=== PATIENT | male | born 1960 | race Caucasian/White ===

== ENCOUNTER 2021-10-26 18:15 | Inpatient (IN) | payer MEDICARE, MEDICAID ==
[~2021-10-26] VITALS: Ht 172.7 cm; Wt 59.5 kg
[2021-10-26 19:42] LABS: BASOPHILS % (AUTO) 0.3 % (0.0-2.0); EOSINOPHILS % (AUTO) 0.1 % (1.0-6.0); HEMOGLOBIN 11.2 g/dL (13.5-17.5); LYMPHOCYTES # (AUTO) 0.5 K/uL (1.0-4.8); LYMPHOCYTES % (AUTO) 4.4 % (22.0-44.0); MEAN CORPUSCULAR HEMOGLOBIN 28.6 pg (26.0-34.0); MEAN CORPUSCULAR VOLUME 84 fL (80-100); MONOCYTES # (AUTO) 0.8 K/uL (0.1-1.0); MONOCYTES % (AUTO) 7.4 % (2.0-9.0); PLATELET COUNT (AUTO) 271 K/uL (150-450); RED BLOOD CELL COUNT(AUTO) 3.93 MIL/uL (4.50-5.90); RED CELL DISTRIBUTION WIDTH 14.5 % (11.5-14.5)
[2021-10-26 19:43] LABS: NEUTROPHILS % (AUTO) 87.8 % (40.0-70.0)
[2021-10-26 19:52] LABS: ANION GAP 10 mmol/L (8-16); CALCIUM, TOTAL 8.5 mg/dL (8.8-10.5); CARBON DIOXIDE 23 mmol/L (22-29); CHLORIDE 99 mmol/L (98-107); GLOMERULAR FILTR. RATE CALC > 60 mL/min (>60); GLUCOSE,RANDOM 115 mg/dL (70-110); POTASSIUM 3.9 mmol/L (3.5-5.1); SODIUM SERUM 132 mmol/L (136-145); UREA NITROGEN, BLOOD 21 mg/dL (7-18)
[2021-10-26 19:58] LABS: ALANINE AMINOTRANSFERASE 22 U/L (12-78); ALBUMIN 3.1 g/dL (3.4-5.0); ALKALINE PHOSPHATASE 73 U/L (46-116); ASPARTATE AMINOTRANSFERASE 24 U/L (15-37); BILIRUBIN,TOTAL 0.7 mg/dL (0.1-1.0); TOTAL PROTEIN, SERUM 6.8 g/dL (6.4-8.2)
[2021-10-26] MEDS ORDERED: SODIUM CHLORIDE 0.9% 2,000 ML IV ONE (20:00)
[2021-10-26] MEDS ORDERED: ACETAMINOPHEN 500 MG TABLET PO ONE (20:00)
[2021-10-26] MEDS ORDERED: PIPERACILLIN/TAZO 3.375 GM/D5W 50 ML IV SCH (20:00)
[2021-10-26 20:03] LABS: LACTIC ACID 1.3 mmol/L (0.4-2.0)
[2021-10-26] MEDS ORDERED: SODIUM CHLORIDE 0.9% 0 ML ONE (20:29)
[2021-10-26] MEDS ORDERED: IOHEXOL 350 MG/ML 100 ML VIAL ONE (20:29)
[2021-10-26] MEDS ORDERED: ONDANSETRON HCL 4 MG/2 ML VIAL IVP PRN ×2 (20:30→20:45)
[2021-10-26] MEDS ORDERED: 0.9% SODIUM CHLORIDE 10 ML SYRINGE IVP PRN (20:30)
[2021-10-26] MEDS ORDERED: VANCOMYCIN HCL 1 GM/D5% WATER 200 ML IV ONE (20:45)
[2021-10-26] MEDS ORDERED: MORPHINE SULFATE 2 MG/ML SYRINGE IVP PRN (20:45)
[2021-10-26] MEDS ORDERED: SODIUM CHLORIDE 0.9% 1,000 ML IV ONE (20:45)
[2021-10-26 20:51] LABS: COVID AG,FIA SOURCE NASAL SWAB
[2021-10-26] MEDS ORDERED: PERTUSS(ACELL),DIPH,TET VAC/PF 0.5 ML SYRINGE IM. ONE (21:00)
[2021-10-26] MEDS: DOCUSATE SODIUM 100 MG CAPSULE PO SCH (21:49)
[2021-10-27] VITALS: BP 114/130
[2021-10-27] MEDS: PIPERACILLIN/TAZO 3.375 GM/D5W 50 ML IV SCH ×4 (04:12→22:32)
[2021-10-27 07:47] LABS: ANION GAP 12 mmol/L (8-16); CARBON DIOXIDE 23 mmol/L (22-29); CHLORIDE 101 mmol/L (98-107); CREATININE 0.89 mg/dL (0.60-1.30); GLOMERULAR FILTR. RATE CALC > 60 mL/min (>60); GLUCOSE,RANDOM 98 mg/dL (70-110); POTASSIUM 3.8 mmol/L (3.5-5.1); SODIUM SERUM 136 mmol/L (136-145); UREA NITROGEN, BLOOD 13 mg/dL (7-18)
[2021-10-27] MEDS: VANCOMYCIN HCL 1 GM in DEXTROSE 5%-WATER 250 ML IV SCH ×2 (07:58→20:48)
[2021-10-27 08:13] VITALS: BP 102/61
[2021-10-27] MEDS: DOCUSATE SODIUM 100 MG CAPSULE PO SCH ×2 (09:28→21:06)
[2021-10-27] MEDS: FAMOTIDINE 20 MG TABLET PO SCH (09:29)
[2021-10-27] MEDS: ACETAMINOPHEN 325 MG TABLET PO PRN ×3 (09:29→21:13)
[2021-10-27 12:09] VITALS: BP 94/60
[2021-10-27 16:08] VITALS: BP 102/66
[2021-10-27 19:50] VITALS: BP 90/50
[2021-10-28] MEDS: PIPERACILLIN/TAZO 3.375 GM/D5W 50 ML IV SCH ×4 (04:11→22:00)
[2021-10-28 07:59] LABS: ANION GAP 9 mmol/L (8-16); CARBON DIOXIDE 25 mmol/L (22-29); CHLORIDE 105 mmol/L (98-107); GLOMERULAR FILTR. RATE CALC > 60 mL/min (>60); GLUCOSE,RANDOM 151 mg/dL (70-110); POTASSIUM 3.6 mmol/L (3.5-5.1); SODIUM SERUM 139 mmol/L (136-145); UREA NITROGEN, BLOOD 18 mg/dL (7-18); VANCOMYCIN,RANDOM 12.1 mcg/mL (25.0-50.0)
[2021-10-28] MEDS: FAMOTIDINE 20 MG TABLET PO SCH (09:36)
[2021-10-28] MEDS: DOCUSATE SODIUM 100 MG CAPSULE PO SCH ×2 (09:36→19:52)
[2021-10-28] MEDS ORDERED: SODIUM CHLORIDE 0.9% 500 ML IV ONE (09:40)
[2021-10-28] MEDS: VANCOMYCIN HCL 1.25 GM in DEXTROSE 5%-WATER 250 ML IV SCH ×2 (10:41→19:52)
[2021-10-28] MEDS ORDERED: SODIUM CHLORIDE 0.9% 1,000 ML IV ONE (12:00)
[2021-10-28] MEDS ORDERED: SODIUM CHLORIDE 0.9% 0 ML ONE (13:25)
[2021-10-28] MEDS: ACETAMINOPHEN 325 MG TABLET PO PRN (16:55)
[2021-10-28 17:34] VITALS: BP 91/68
[2021-10-28 19:50] VITALS: BP 111/68
[2021-10-28] MEDS: QUEtiapine FUMARATE 200 MG TABLET PO SCH (19:52)
[2021-10-29] MEDS: PIPERACILLIN/TAZO 3.375 GM/D5W 50 ML IV SCH ×4 (04:00→22:27)
[2021-10-29 04:50] VITALS: BP 116/75
[2021-10-29] MEDS: VANCOMYCIN HCL 1.25 GM in DEXTROSE 5%-WATER 250 ML IV SCH ×2 (08:00→21:21)
[2021-10-29] MEDS: DOCUSATE SODIUM 100 MG CAPSULE PO SCH ×2 (09:00→21:21)
[2021-10-29] MEDS: FAMOTIDINE 20 MG TABLET PO SCH (09:00)
[2021-10-29] MEDS: HYDROCODONE/ACETAMINOPHEN 5-325 MG TABLET PO PRN ×2 (12:52→17:14)
[2021-10-29] MEDS: SULFAMETHOX/TRIMETH DS 800-160 MG/TABLET PO SCH ×2 (12:53→21:22)
[2021-10-29] MEDS: QUEtiapine FUMARATE 200 MG TABLET PO SCH (21:21)
[2021-10-30] MEDS: PIPERACILLIN/TAZO 3.375 GM/D5W 50 ML IV SCH ×4 (05:05→22:56)
[2021-10-30 07:31] LABS: ANION GAP 6 mmol/L (8-16); CALCIUM, TOTAL 8.3 mg/dL (8.8-10.5); CARBON DIOXIDE 26 mmol/L (22-29); CHLORIDE 110 mmol/L (98-107); CREATININE 1.07 mg/dL (0.60-1.30); GLOMERULAR FILTR. RATE CALC > 60 mL/min (>60); GLUCOSE,RANDOM 102 mg/dL (70-110); SODIUM SERUM 142 mmol/L (136-145); UREA NITROGEN, BLOOD 17 mg/dL (7-18)
[2021-10-30] MEDS: VANCOMYCIN HCL 1.25 GM in DEXTROSE 5%-WATER 250 ML IV SCH ×2 (07:53→20:31)
[2021-10-30] MEDS: SULFAMETHOX/TRIMETH DS 800-160 MG/TABLET PO SCH (07:53)
[2021-10-30] MEDS: DOCUSATE SODIUM 100 MG CAPSULE PO SCH ×2 (07:54→20:31)
[2021-10-30] MEDS: HYDROCODONE/ACETAMINOPHEN 5-325 MG TABLET PO PRN (07:54)
[2021-10-30] MEDS: FAMOTIDINE 20 MG TABLET PO SCH (07:54)
[2021-10-30 09:28] VITALS: BP 151/77
[2021-10-30] MEDS: QUEtiapine FUMARATE 200 MG TABLET PO SCH (20:31)
[2021-10-31] MEDS: PIPERACILLIN/TAZO 3.375 GM/D5W 50 ML IV SCH ×4 (04:06→22:32)
[2021-10-31 04:58] VITALS: BP 130/86
[2021-10-31 07:09] LABS: ANION GAP 9 mmol/L (8-16); CALCIUM, TOTAL 8.5 mg/dL (8.8-10.5); CARBON DIOXIDE 26 mmol/L (22-29); CHLORIDE 104 mmol/L (98-107); CREATININE 1.17 mg/dL (0.60-1.30); GLOMERULAR FILTR. RATE CALC > 60 mL/min (>60); GLUCOSE,RANDOM 108 mg/dL (70-110); POTASSIUM 4.3 mmol/L (3.5-5.1); SODIUM SERUM 139 mmol/L (136-145); UREA NITROGEN, BLOOD 16 mg/dL (7-18); VANCOMYCIN,RANDOM 21.1 mcg/mL (25.0-50.0)
[2021-10-31] MEDS: VANCOMYCIN HCL 1.25 GM in DEXTROSE 5%-WATER 250 ML IV SCH (07:43)
[2021-10-31] MEDS: FAMOTIDINE 20 MG TABLET PO SCH (08:31)
[2021-10-31] MEDS: DOCUSATE SODIUM 100 MG CAPSULE PO SCH ×2 (08:31→20:31)
[2021-10-31] MEDS: ACETAMINOPHEN 325 MG TABLET PO PRN ×2 (08:40→12:53)
[2021-10-31] MEDS ORDERED: SODIUM CHLORIDE 0.9% 1,000 ML ONE (14:39)
[2021-10-31] MEDS ORDERED: LORazepam 1 MG TABLET PO PRN (16:15)
[2021-10-31] MEDS ORDERED: LORazepam 2 MG/ML VIAL IVP PRN (16:15)
[2021-10-31 20:30] VITALS: BP 133/89
[2021-10-31] MEDS: VANCOMYCIN HCL 1 GM/D5% WATER 200 ML IV SCH (20:30)
[2021-10-31] MEDS: QUEtiapine FUMARATE 200 MG TABLET PO SCH (20:30)
[2021-11-01] MEDS: PIPERACILLIN/TAZO 3.375 GM/D5W 50 ML IV SCH ×2 (05:05→11:01)
[2021-11-01 07:26] LABS: CALCIUM, TOTAL 9.2 mg/dL (8.8-10.5); CREATININE 1.26 mg/dL (0.60-1.30); POTASSIUM 4.6 mmol/L (3.5-5.1)
[2021-11-01] MEDS: FAMOTIDINE 20 MG TABLET PO SCH (09:08)
[2021-11-01] MEDS: DOCUSATE SODIUM 100 MG CAPSULE PO SCH ×2 (09:08→21:00)
[2021-11-01] MEDS: VANCOMYCIN HCL 1 GM/D5% WATER 200 ML IV SCH (09:09)
[2021-11-01 11:27] LABS: BASOPHILS % (AUTO) 0.5 % (0.0-2.0); HEMATOCRIT 34.1 % (41-53); HEMOGLOBIN 11.3 g/dL (13.5-17.5); LYMPHOCYTES # (AUTO) 1.1 K/uL (1.0-4.8); LYMPHOCYTES % (AUTO) 13.5 % (22.0-44.0); MEAN CORPUSCULAR HEMOGLOBIN 28.5 pg (26.0-34.0); MEAN CORPUSCULAR VOLUME 86 fL (80-100); MONOCYTES # (AUTO) 0.8 K/uL (0.1-1.0); NEUTROPHILS # (AUTO) 6.1 K/uL (1.8-7.7); PLATELET COUNT (AUTO) 403 K/uL (150-450); RED BLOOD CELL COUNT(AUTO) 3.95 MIL/uL (4.50-5.90)
[2021-11-01] MEDS: HYDROCODONE/ACETAMINOPHEN 5-325 MG TABLET PO PRN ×2 (11:41→21:14)
[2021-11-01 12:51] VITALS: BP 135/71
[2021-11-01] MEDS: QUEtiapine FUMARATE 200 MG TABLET PO SCH (21:11)
[2021-11-01] MEDS: SULFAMETHOX/TRIMETH DS 800-160 MG/TABLET PO SCH (21:12)
[2021-11-02 07:56] VITALS: BP 107/67
[2021-11-02] MEDS: SULFAMETHOX/TRIMETH DS 800-160 MG/TABLET PO SCH ×2 (08:56→19:58)
[2021-11-02] MEDS: FAMOTIDINE 20 MG TABLET PO SCH (08:56)
[2021-11-02] MEDS: DOCUSATE SODIUM 100 MG CAPSULE PO SCH ×2 (08:56→19:58)
[2021-11-02] MEDS: HYDROCODONE/ACETAMINOPHEN 5-325 MG TABLET PO PRN ×2 (09:47→19:58)
[2021-11-02] MEDS: QUEtiapine FUMARATE 200 MG TABLET PO SCH (19:58)
[2021-11-02 20:07] VITALS: BP 110/73
[2021-11-02 20:31] VITALS: BP 102/76
[2021-11-03] MEDS: HYDROCODONE/ACETAMINOPHEN 5-325 MG TABLET PO PRN ×2 (06:26→13:42)
[2021-11-03 06:34] VITALS: BP 121/74
[2021-11-03 08:04] LABS: CALCIUM, TOTAL 8.8 mg/dL (8.8-10.5); CREATININE 1.46 mg/dL (0.60-1.30); POTASSIUM 4.5 mmol/L (3.5-5.1); VANCOMYCIN,RANDOM 5.5 mcg/mL (25.0-50.0)
[2021-11-03 08:59] VITALS: BP 130/87
[2021-11-03] MEDS: SULFAMETHOX/TRIMETH DS 800-160 MG/TABLET PO SCH (09:16)
[2021-11-03] MEDS: DOCUSATE SODIUM 100 MG CAPSULE PO SCH (09:16)
[2021-11-03] MEDS: FAMOTIDINE 20 MG TABLET PO SCH (09:16)
[2021-11-03 16:20] VITALS: BP 104/63
[2021-11-03] MEDS ORDERED: QUET200T PO (17:29)
[2021-11-03] MEDS ORDERED: SULF-261 PO (17:29)
[2021-11-03] MEDS ORDERED: ACET-2247 PO (17:29)
[2021-11-03] MEDS ORDERED: LORA-1000 PO (17:30)
== END 2021-11-03 19:46 | DRG 872 ==
LOC: EMS 18:18 → 6N 21:00
PROVIDERS: ADMIT Internal Medicine; ATTEND Internal Medicine
DX: A41.9 Sepsis, unspecified organism (principal); L03.113 Cellulitis of right upper limb; F20.0 Paranoid schizophrenia; L03.115 Cellulitis of right lower limb; L02.413 Cutaneous abscess of right upper limb; F17.210 Nicotine dependence, cigarettes, uncomplicated; F99 Mental disorder, not otherwise specified; F15.10 Other stimulant abuse, uncomplicated; Z20.822 Contact with and (suspected) exposure to COVID-19; F11.10 Opioid abuse, uncomplicated; Z59.00 Homelessness unspecified; Z91.19 Patient's noncompliance with other medical treatment and regimen
CPT/HCPCS: 73200; 80048; 80053; 80202; 83605; 84484; 85025; 87040; 87081; 90715; 93005; 99291; G0378; G0480; J2270; J2405; J2543; J3370; J7030; J7040; J7050; J7060; Q9967

== ENCOUNTER 2021-11-04 14:06 | Inpatient (IN) | payer MEDICARE, MEDICAID ==
[~2021-11-04] VITALS: Ht 172.7 cm; Wt 60.0 kg
[~2021-11-04 14:06] MED LIST: ACET-2247 PO; LORA-1000 PO; QUET200T PO; SULF-261 PO
[2021-11-04 14:45] LABS: HEMATOCRIT 31.5 % (41-53); HEMOGLOBIN 10.7 g/dL (13.5-17.5); MEAN CORPUSCULAR HEMOGLOBIN 28.9 pg (26.0-34.0); MEAN CORPUSCULAR VOLUME 85 fL (80-100); PLATELET COUNT (AUTO) 448 K/uL (150-450); RED BLOOD CELL COUNT(AUTO) 3.71 MIL/uL (4.50-5.90); RED CELL DISTRIBUTION WIDTH 15.5 % (11.5-14.5)
[2021-11-04 15:04] LABS: ANION GAP 10 mmol/L (8-16); CALCIUM, TOTAL 8.4 mg/dL (8.8-10.5); CARBON DIOXIDE 27 mmol/L (22-29); CHLORIDE 102 mmol/L (98-107); CREATININE 1.33 mg/dL (0.60-1.30); GLOMERULAR FILTR. RATE CALC 55 mL/min (>60); GLUCOSE,RANDOM 84 mg/dL (70-110); POTASSIUM 4.5 mmol/L (3.5-5.1); SODIUM SERUM 139 mmol/L (136-145); UREA NITROGEN, BLOOD 21 mg/dL (7-18)
[2021-11-04 15:05] LABS: AMPHET/METH SCREEN,URINE NEGATIVE (NEGATIVE); BARBITURATE SCREEN, URINE NEGATIVE (NEGATIVE); BENZODIAZEPINES SCREEN,URINE NEGATIVE (NEGATIVE); CANNABINOID SCREEN,URINE NEGATIVE (NEGATIVE); COCAINE SCREEN,URINE NEGATIVE (NEGATIVE); METHADONE SCREEN, URINE NEGATIVE (NEGATIVE); OPIATE SCREEN,URINE NEGATIVE (NEGATIVE)
[2021-11-04 15:07] LABS: PHENCYCLIDINE SCREEN,URINE NEGATIVE (NEGATIVE)
[2021-11-04 15:07] LABS: ALANINE AMINOTRANSFERASE 21 U/L (12-78); ALBUMIN 2.5 g/dL (3.4-5.0); ALKALINE PHOSPHATASE 80 U/L (46-116); ASPARTATE AMINOTRANSFERASE 20 U/L (15-37); BILIRUBIN,TOTAL 0.2 mg/dL (0.1-1.0); TOTAL PROTEIN, SERUM 6.8 g/dL (6.4-8.2)
[2021-11-04 15:09] LABS: BAND NEUTROPHILS % (MANUAL) 5 % (0-5); EOSINOPHILS % (MANUAL) 1 % (1-6); LYMPHOCYTES % (MANUAL) 16 % (22-44); MONOCYTES % (MANUAL) 2 % (2-9); SEGMENTED NEUTROPHILS % 76 % (40-70)
[2021-11-04] MEDS ORDERED: LORazepam 2 MG TABLET PO ONE (15:30)
[2021-11-04] MEDS ORDERED: HALOPERIDOL 5 MG TABLET PO ONE (15:30)
[2021-11-04 17:24] LABS: COVID AG,FIA SOURCE NASOPHARYNGEAL
[2021-11-04] MEDS: QUEtiapine FUMARATE 200 MG TABLET PO SCH (20:59)
[2021-11-04] MEDS ORDERED: PNEUMOCOCCAL VACCINE POLYVALENT 0.5 ML VIAL [PPSV23] IM. ONE (21:15)
[2021-11-04] MEDS ORDERED: INFLUENZA VIRUS VACCINE QVS 2021-22 (6MO+)/PF 60 MCG/0.5 ML SYRINGE IM. ONE (21:15)
[2021-11-04 21:27] VITALS: BP 131/91
[2021-11-05 01:28] VITALS: BP 128/83
[2021-11-05 08:26] VITALS: BP 126/80
[2021-11-05] MEDS: LORazepam 2 MG TABLET PO PRN ×2 (08:50→16:23)
[2021-11-05] MEDS: SULFAMETHOX/TRIMETH DS 800-160 MG/TABLET PO SCH ×2 (08:50→16:23)
[2021-11-05] MEDS ORDERED: ACETAMINOPHEN 325 MG TABLET PO PRN (09:30)
[2021-11-05] MEDS: HALOPERIDOL 5 MG TABLET PO PRN ×2 (10:51→16:23)
[2021-11-05] MEDS ORDERED: CloNIDine HCL 0.1 MG TABLET PO PRN (12:00)
[2021-11-05] MEDS ORDERED: LOPERAMIDE HCL 2 MG CAPSULE PO PRN (12:00)
[2021-11-05] MEDS ORDERED: PETROLATUM,WHITE 28 GM JELLY TP PRN (12:00)
[2021-11-05] MEDS ORDERED: GuaiFENesin/D-METHORPHAN [SUGAR-FREE] 200-20MG/10 ML SYRUP UDCUP PO PRN (12:00)
[2021-11-05] MEDS ORDERED: IBUPROFEN 400 MG TABLET PO PRN (12:00)
[2021-11-05] MEDS ORDERED: NICOTINE 14 MG/24 HOUR PATCH TD PRN (12:00)
[2021-11-05] MEDS ORDERED: ALBUTEROL SULFATE HFA 90 MCG/PUFF 8 GM INHALER IH PRN (12:00)
[2021-11-05] MEDS ORDERED: MAGNESIUM HYDROXIDE SUSPENSION 30 ML UDCUP PO PRN (12:00)
[2021-11-05] MEDS ORDERED: ONDANSETRON HCL 4 MG TABLET PO PRN (12:00)
[2021-11-05] MEDS ORDERED: DOCUSATE SODIUM 100 MG CAPSULE PO PRN (12:00)
[2021-11-05] MEDS ORDERED: MAG HYDROX/AL HYDROX/SIMETH ES 30 ML SUSPENSION UDCUP PO PRN (12:00)
[2021-11-05] MEDS: ACETAMINOPHEN 325 MG TABLET PO PRN (13:36)
[2021-11-05 16:03] VITALS: BP 113/81
[2021-11-05] MEDS: QUEtiapine FUMARATE 200 MG TABLET PO SCH (20:35)
[2021-11-05] MEDS: ZOLPIDEM TARTRATE 10 MG TABLET PO PRN (20:36)
[2021-11-06 03:16] VITALS: BP 110/78
[2021-11-06 08:02] VITALS: BP 98/62
[2021-11-06] MEDS: SULFAMETHOX/TRIMETH DS 800-160 MG/TABLET PO SCH ×2 (08:09→16:38)
[2021-11-06] MEDS: ACETAMINOPHEN 325 MG TABLET PO PRN (08:10)
[2021-11-06 09:10] VITALS: BP 115/70
[2021-11-06] MEDS: LORazepam 2 MG TABLET PO PRN ×2 (13:22→17:23)
[2021-11-06 16:26] VITALS: BP 106/69
[2021-11-06] MEDS: HALOPERIDOL 5 MG TABLET PO PRN (17:23)
[2021-11-06] MEDS: QUEtiapine FUMARATE 200 MG TABLET PO SCH (20:25)
[2021-11-07 04:26] VITALS: BP 113/81
[2021-11-07] MEDS: HALOPERIDOL 5 MG TABLET PO PRN ×2 (08:15→16:33)
[2021-11-07] MEDS: SULFAMETHOX/TRIMETH DS 800-160 MG/TABLET PO SCH ×2 (08:15→16:33)
[2021-11-07] MEDS: LORazepam 2 MG TABLET PO PRN ×3 (08:16→18:29)
[2021-11-07 10:12] VITALS: BP 114/78
[2021-11-07 16:07] VITALS: BP 102/67
[2021-11-07] MEDS: QUEtiapine FUMARATE 200 MG TABLET PO SCH (20:04)
[2021-11-07] MEDS: ZOLPIDEM TARTRATE 10 MG TABLET PO PRN (20:04)
[2021-11-08 04:20] VITALS: BP 132/84
[2021-11-08 08:00] VITALS: BP 130/80
[2021-11-08] MEDS: HALOPERIDOL 5 MG TABLET PO PRN (08:14)
[2021-11-08] MEDS: SULFAMETHOX/TRIMETH DS 800-160 MG/TABLET PO SCH ×2 (08:14→16:52)
[2021-11-08] MEDS: LORazepam 2 MG TABLET PO PRN ×2 (08:14→14:44)
[2021-11-08 16:02] VITALS: BP 113/76
[2021-11-08] MEDS: ZOLPIDEM TARTRATE 10 MG TABLET PO PRN (20:06)
[2021-11-08] MEDS: QUEtiapine FUMARATE 200 MG TABLET PO SCH (20:06)
[2021-11-09 01:14] VITALS: BP 125/72
[2021-11-09] MEDS: LORazepam 2 MG TABLET PO PRN ×3 (06:28→18:34)
[2021-11-09] MEDS: SULFAMETHOX/TRIMETH DS 800-160 MG/TABLET PO SCH ×2 (08:31→16:51)
[2021-11-09 09:18] VITALS: BP 110/70
[2021-11-09 16:16] VITALS: BP 122/78
[2021-11-09] MEDS: HALOPERIDOL 5 MG TABLET PO PRN (16:51)
[2021-11-09] MEDS: QUEtiapine FUMARATE 200 MG TABLET PO SCH (20:16)
[2021-11-09] MEDS: ZOLPIDEM TARTRATE 10 MG TABLET PO PRN (20:16)
[2021-11-10 00:15] VITALS: BP 120/78
[2021-11-10] MEDS: LORazepam 2 MG TABLET PO PRN ×2 (06:42→16:07)
[2021-11-10] MEDS: SULFAMETHOX/TRIMETH DS 800-160 MG/TABLET PO SCH ×2 (08:22→16:07)
[2021-11-10] MEDS ORDERED: QUEtiapine FUMARATE 200 MG TABLET PO ONE (09:15)
[2021-11-10 09:58] VITALS: BP 124/80
[2021-11-10 16:02] VITALS: BP 108/68
[2021-11-10] MEDS: ZOLPIDEM TARTRATE 10 MG TABLET PO PRN (20:08)
[2021-11-10] MEDS: QUEtiapine FUMARATE 200 MG TABLET PO SCH (20:08)
[2021-11-11 04:06] VITALS: BP 118/70
[2021-11-11] MEDS: LORazepam 2 MG TABLET PO PRN ×3 (05:36→16:18)
[2021-11-11] MEDS: SULFAMETHOX/TRIMETH DS 800-160 MG/TABLET PO SCH ×2 (09:39→16:18)
[2021-11-11] MEDS: QUEtiapine FUMARATE 200 MG TABLET PO SCH ×2 (09:39→20:28)
[2021-11-11] MEDS: HALOPERIDOL 5 MG TABLET PO PRN (09:39)
[2021-11-11 10:17] VITALS: BP 120/70
[2021-11-11 16:08] VITALS: BP 113/62
[2021-11-11] MEDS: ZOLPIDEM TARTRATE 10 MG TABLET PO PRN (20:28)
[2021-11-12 00:08] VITALS: BP 122/83
[2021-11-12] MEDS: HALOPERIDOL 5 MG TABLET PO PRN (06:36)
[2021-11-12] MEDS: LORazepam 2 MG TABLET PO PRN ×2 (06:36→16:32)
[2021-11-12 08:26] VITALS: BP 116/73
[2021-11-12] MEDS: QUEtiapine FUMARATE 200 MG TABLET PO SCH ×2 (09:06→20:19)
[2021-11-12 16:02] VITALS: BP 110/70
[2021-11-13 03:19] VITALS: BP 108/64
[2021-11-13] MEDS: LORazepam 2 MG TABLET PO PRN ×2 (06:35→15:55)
[2021-11-13 08:22] VITALS: BP 102/61
[2021-11-13] MEDS: QUEtiapine FUMARATE 200 MG TABLET PO SCH ×2 (08:35→20:00)
[2021-11-13 16:01] VITALS: BP 107/74
[2021-11-13] MEDS ORDERED: TAMSULOSIN HCL 0.4 MG CAPSULE PO SCH (21:00)
[2021-11-14 05:31] VITALS: BP 108/76
[2021-11-14] MEDS: LORazepam 2 MG TABLET PO PRN (08:07)
[2021-11-14] MEDS: QUEtiapine FUMARATE 200 MG TABLET PO SCH (08:07)
[2021-11-14 08:17] VITALS: BP 117/64
[2021-11-14] MEDS ORDERED: QUET200T PO (10:34)
== END 2021-11-14 12:10 | disposition home or self-care (01) | DRG 885 ==
LOC: EMS 14:06 → B3A 17:34
PROVIDERS: ADMIT Psychiatry & Neurology Psychiatry; ATTEND Psychiatry & Neurology Psychiatry
DX: F20.0 Paranoid schizophrenia (principal); L02.413 Cutaneous abscess of right upper limb; L03.113 Cellulitis of right upper limb; L03.115 Cellulitis of right lower limb; I95.9 Hypotension, unspecified; Z20.822 Contact with and (suspected) exposure to COVID-19; F15.10 Other stimulant abuse, uncomplicated; F11.10 Opioid abuse, uncomplicated; Z59.00 Homelessness unspecified; Z79.899 Other long term (current) drug therapy; Z87.891 Personal history of nicotine dependence; Z91.19 Patient's noncompliance with other medical treatment and regimen; Z28.21 Immunization not carried out because of patient refusal
CPT/HCPCS: 80053; 85025; 87081; 99285; G0480

== ENCOUNTER 2021-12-24 23:39 | Inpatient (IN) | payer MEDICARE, MEDICAID ==
[~2021-12-24] VITALS: Ht 172.7 cm; Wt 55.5 kg
[~2021-12-24 23:39] MED LIST changes: -ACET-2247 PO; -LORA-1000 PO; -SULF-261 PO
[2021-12-25 00:24] LABS: BASOPHILS % (AUTO) 1.3 % (0.0-2.0); EOSINOPHILS % (AUTO) 4.6 % (1.0-6.0); HEMATOCRIT 39.8 % (41-53); LYMPHOCYTES # (AUTO) 1.5 K/uL (1.0-4.8); LYMPHOCYTES % (AUTO) 22.5 % (22.0-44.0); MEAN CORPUSCULAR HEMOGLOBIN 27.6 pg (26.0-34.0); MEAN CORPUSCULAR HGB CONC 32.7 G/dL (31.0-37.0); MEAN CORPUSCULAR VOLUME 84 fL (80-100); MONOCYTES # (AUTO) 0.6 K/uL (0.1-1.0); MONOCYTES % (AUTO) 9.8 % (2.0-9.0); NEUTROPHILS % (AUTO) 61.8 % (40.0-70.0); PLATELET COUNT (AUTO) 326 K/uL (150-450); RED BLOOD CELL COUNT(AUTO) 4.72 MIL/uL (4.50-5.90); RED CELL DISTRIBUTION WIDTH 16.1 % (11.5-14.5)
[2021-12-25 00:56] LABS: ANION GAP 13 mmol/L (8-16); CALCIUM, TOTAL 9.5 mg/dL (8.8-10.5); CARBON DIOXIDE 26 mmol/L (22-29); CHLORIDE 103 mmol/L (98-107); CREATININE 1.56 mg/dL (0.60-1.30); GLOMERULAR FILTR. RATE CALC 45 mL/min (>60); GLUCOSE,RANDOM 97 mg/dL (70-110); POTASSIUM 4.5 mmol/L (3.5-5.1); SODIUM SERUM 142 mmol/L (136-145); UREA NITROGEN, BLOOD 37 mg/dL (7-18)
[2021-12-25 00:59] LABS: ALANINE AMINOTRANSFERASE 60 U/L (12-78); ALBUMIN 4.2 g/dL (3.4-5.0); ALKALINE PHOSPHATASE 85 U/L (46-116); ASPARTATE AMINOTRANSFERASE 46 U/L (15-37); BILIRUBIN,TOTAL 0.6 mg/dL (0.1-1.0); TOTAL PROTEIN, SERUM 8.4 g/dL (6.4-8.2)
[2021-12-25] MEDS ORDERED: ZOLPIDEM TARTRATE 10 MG TABLET PO PRN (01:00)
[2021-12-25 01:23] LABS: COVID AG,FIA SOURCE NASAL SWAB
[2021-12-25] MEDS ORDERED: LORazepam 2 MG/ML VIAL IM ONE (03:15)
[2021-12-25] MEDS ORDERED: DiphenhydrAMINE HCL 50 MG/ML VIAL IM ONE (03:15)
[2021-12-25] MEDS: HALOPERIDOL 5 MG TABLET PO PRN (10:52)
[2021-12-25] MEDS: LORazepam 2 MG TABLET PO PRN (10:52)
[2021-12-25 21:17] VITALS: BP 129/84
[2021-12-26] MEDS: LORazepam 2 MG TABLET PO PRN (07:57)
[2021-12-26] MEDS: HALOPERIDOL 5 MG TABLET PO PRN ×2 (07:57→20:01)
[2021-12-26 08:42] VITALS: BP 119/81
[2021-12-26] MEDS: QUEtiapine FUMARATE 100 MG TABLET PO SCH ×2 (11:30→20:01)
[2021-12-27] MEDS: QUEtiapine FUMARATE 100 MG TABLET PO SCH ×2 (07:22→20:50)
[2021-12-27] MEDS: LORazepam 2 MG TABLET PO PRN ×2 (07:22→16:57)
[2021-12-27] MEDS ORDERED: ACETAMINOPHEN 325 MG TABLET PO PRN (20:00)
[2021-12-27] MEDS ORDERED: MAG HYDROX/AL HYDROX/SIMETH ES 30 ML SUSPENSION UDCUP PO PRN (20:00)
[2021-12-27] MEDS ORDERED: MAGNESIUM HYDROXIDE SUSPENSION 30 ML UDCUP PO PRN (20:00)
[2021-12-27] MEDS ORDERED: ONDANSETRON HCL 4 MG TABLET PO PRN (20:00)
[2021-12-27] MEDS ORDERED: IBUPROFEN 400 MG TABLET PO PRN (20:00)
[2021-12-27] MEDS ORDERED: CloNIDine HCL 0.1 MG TABLET PO PRN (20:00)
[2021-12-27] MEDS ORDERED: GuaiFENesin/D-METHORPHAN [SUGAR-FREE] 200-20MG/10 ML SYRUP UDCUP PO PRN (20:00)
[2021-12-27] MEDS ORDERED: PETROLATUM,WHITE 28 GM JELLY TP PRN (20:00)
[2021-12-27] MEDS ORDERED: NICOTINE 14 MG/24 HOUR PATCH TD PRN (20:00)
[2021-12-27] MEDS ORDERED: ALBUTEROL SULFATE HFA 90 MCG/PUFF 8 GM INHALER IH PRN (20:00)
[2021-12-27] MEDS ORDERED: DOCUSATE SODIUM 100 MG CAPSULE PO PRN (20:00)
[2021-12-27] MEDS ORDERED: LOPERAMIDE HCL 2 MG CAPSULE PO PRN (20:00)
[2021-12-27] MEDS: HALOPERIDOL 5 MG TABLET PO PRN (20:50)
[2021-12-28] MEDS: LORazepam 2 MG TABLET PO PRN ×2 (06:41→15:57)
[2021-12-28] MEDS: QUEtiapine FUMARATE 100 MG TABLET PO SCH ×3 (08:04→20:50)
[2021-12-28] MEDS: HALOPERIDOL 5 MG TABLET PO PRN ×2 (08:07→16:50)
[2021-12-28 08:17] VITALS: BP 129/102
[2021-12-28 16:25] VITALS: BP 131/92
[2021-12-29] MEDS: QUEtiapine FUMARATE 100 MG TABLET PO SCH (07:59)
[2021-12-29] MEDS: LORazepam 2 MG TABLET PO PRN (07:59)
[2021-12-29 08:13] VITALS: BP 120/87
[2021-12-29] MEDS ORDERED: QUET100T34 PO (11:54)
== END 2021-12-29 14:05 | disposition home or self-care (01) | DRG 885 ==
LOC: EMS 23:42 → 3EC 12-25 20:28
PROVIDERS: ADMIT Psychiatry & Neurology Child & Adolescent Psychiatry; ATTEND Psychiatry & Neurology Child & Adolescent Psychiatry
DX: F20.0 Paranoid schizophrenia (principal); N17.9 Acute kidney failure, unspecified; Z20.822 Contact with and (suspected) exposure to COVID-19; D64.9 Anemia, unspecified; F10.10 Alcohol abuse, uncomplicated; F15.90 Other stimulant use, unspecified, uncomplicated; I10 Essential (primary) hypertension; Z59.00 Homelessness unspecified; F17.210 Nicotine dependence, cigarettes, uncomplicated; Z91.19 Patient's noncompliance with other medical treatment and regimen; F19.10 Other psychoactive substance abuse, uncomplicated; Z88.8 Allergy status to other drugs, medicaments and biological substances
CPT/HCPCS: 80053; 85025; 99285; G0480; J1200; J2060

== ENCOUNTER 2022-06-17 07:53 | Emergency (ER) | payer MEDICARE, MEDICAID ==
[~2022-06-17] VITALS: Ht 172.7 cm; Wt 56.8 kg
[~2022-06-17 07:53] MED LIST changes: +QUET100T34 PO
[2022-06-17 09:36] LABS: GLUCOMETER DEV NAME(LOC) ERT.5; GLUCOSE,POINT OF CARE 117 MG/DL (70-110)
[2022-06-17 13:39] VITALS: BP 114/63
== END 2022-06-17 14:36 | disposition home or self-care (01) ==
LOC: EMS 08:09
DX: F15.10 Other stimulant abuse, uncomplicated (principal); F10.20 Alcohol dependence, uncomplicated; F20.9 Schizophrenia, unspecified; F17.210 Nicotine dependence, cigarettes, uncomplicated; F11.90 Opioid use, unspecified, uncomplicated; Z86.19 Personal history of other infectious and parasitic diseases; Z88.8 Allergy status to other drugs, medicaments and biological substances; Z59.00 Homelessness unspecified
CPT/HCPCS: 82962; 99282

== ENCOUNTER 2022-08-17 02:23 | Emergency (ER) | payer MEDICARE, MEDICAID ==
[~2022-08-17] VITALS: Ht 172.7 cm; Wt 56.8 kg
[2022-08-17 02:25] VITALS: BP 146/76
== END 2022-08-17 07:10 | disposition left against medical advice (07) ==
LOC: EMS 02:24
DX: R10.9 Unspecified abdominal pain (principal); Z53.21 Procedure and treatment not carried out due to patient leaving prior to being seen by health care provider

== ENCOUNTER 2022-08-20 15:06 | Emergency (ER) | payer MEDICARE, MEDICAID ==
[~2022-08-20] VITALS: Ht 177.8 cm; Wt 65.9 kg
[2022-08-20 15:48] LABS: BASOPHILS % (AUTO) 0.6 % (0.0-2.0); EOSINOPHILS % (AUTO) 7.9 % (1.0-6.0); HEMATOCRIT 34.3 % (41-53); HEMOGLOBIN 11.3 g/dL (13.5-17.5); LYMPHOCYTES # (AUTO) 1.6 K/uL (1.0-4.8); LYMPHOCYTES % (AUTO) 27.4 % (22.0-44.0); MEAN CORPUSCULAR HEMOGLOBIN 29.9 pg (26.0-34.0); MEAN CORPUSCULAR HGB CONC 32.9 G/dL (31.0-37.0); MEAN CORPUSCULAR VOLUME 91 fL (80-100); MONOCYTES # (AUTO) 0.7 K/uL (0.1-1.0); MONOCYTES % (AUTO) 12.2 % (2.0-9.0); NEUTROPHILS % (AUTO) 51.9 % (40.0-70.0); PLATELET COUNT (AUTO) 220 K/uL (150-450); RED BLOOD CELL COUNT(AUTO) 3.77 MIL/uL (4.50-5.90); RED CELL DISTRIBUTION WIDTH 14.1 % (11.5-14.5)
[2022-08-20 15:57] LABS: ANION GAP 3 mmol/L (8-16); CALCIUM, TOTAL 8.4 mg/dL (8.8-10.5); CARBON DIOXIDE 30 mmol/L (22-29); CHLORIDE 108 mmol/L (98-107); CREATININE 0.87 mg/dL (0.60-1.30); GLUCOSE,RANDOM 100 mg/dL (70-110); POTASSIUM 3.5 mmol/L (3.5-5.1); SODIUM SERUM 141 mmol/L (136-145); UREA NITROGEN, BLOOD 18 mg/dL (7-18)
[2022-08-20 15:58] LABS: GLOMERULAR FILTR. RATE CALC > 60 mL/min (>60)
[2022-08-20 16:03] LABS: ALANINE AMINOTRANSFERASE 29 U/L (12-78); ALBUMIN 2.9 g/dL (3.4-5.0); ALKALINE PHOSPHATASE 48 U/L (46-116); ASPARTATE AMINOTRANSFERASE 23 U/L (15-37); BILIRUBIN,TOTAL 0.2 mg/dL (0.1-1.0); TOTAL PROTEIN, SERUM 5.8 g/dL (6.4-8.2)
[2022-08-20 16:04] LABS: LITHIUM < 0.20 mmol/L (0.60-1.20)
[2022-08-20 16:34] LABS: AMPHET/METH SCREEN,URINE POSITIVE (NEGATIVE); BARBITURATE SCREEN, URINE NEGATIVE (NEGATIVE); BENZODIAZEPINES SCREEN,URINE NEGATIVE (NEGATIVE); CANNABINOID SCREEN,URINE NEGATIVE (NEGATIVE); COCAINE SCREEN,URINE NEGATIVE (NEGATIVE); METHADONE SCREEN, URINE NEGATIVE (NEGATIVE); OPIATE SCREEN,URINE NEGATIVE (NEGATIVE)
[2022-08-20 16:36] LABS: PHENCYCLIDINE SCREEN,URINE NEGATIVE (NEGATIVE)
[2022-08-20 17:07] VITALS: BP 130/70
== END 2022-08-20 17:07 | disposition home or self-care (01) ==
LOC: EMS 15:42
DX: F15.10 Other stimulant abuse, uncomplicated (principal); F20.9 Schizophrenia, unspecified; F10.20 Alcohol dependence, uncomplicated; F17.210 Nicotine dependence, cigarettes, uncomplicated; F19.90 Other psychoactive substance use, unspecified, uncomplicated; Z88.8 Allergy status to other drugs, medicaments and biological substances
CPT/HCPCS: 99283; 80053; 80178; 85025; 36415; 80307; G0480

== ENCOUNTER 2023-05-08 13:01 | Inpatient (IN) | payer MEDICARE, MEDICAID ==
[~2023-05-08] VITALS: Ht 172.7 cm; Wt 63.6 kg
[~2023-05-08 13:01] MED LIST changes: -QUET200T PO
[2023-05-08] MEDS ORDERED: ACETAMINOPHEN 325 MG TABLET PO ONE (13:30)
[2023-05-08 13:42] LABS: BASOPHILS % (AUTO) 0.1 % (0.0-2.0); EOSINOPHILS % (AUTO) 0 % (1.0-6.0); HEMATOCRIT 38.9 % (41-53); HEMOGLOBIN 12.6 g/dL (13.5-17.5); LYMPHOCYTES # (AUTO) 0.8 K/uL (1.0-4.8); LYMPHOCYTES % (AUTO) 4.7 % (22.0-44.0); MEAN CORPUSCULAR HEMOGLOBIN 28.8 pg (26.0-34.0); MEAN CORPUSCULAR HGB CONC 32.5 G/dL (31.0-37.0); MEAN CORPUSCULAR VOLUME 89 fL (80-100); MONOCYTES # (AUTO) 1.1 K/uL (0.1-1.0); MONOCYTES % (AUTO) 6.6 % (2.0-9.0); NEUTROPHILS # (AUTO) 14.6 K/uL (1.8-7.7); PLATELET COUNT (AUTO) 277 K/uL (150-450); RED BLOOD CELL COUNT(AUTO) 4.38 MIL/uL (4.50-5.90); RED CELL DISTRIBUTION WIDTH 13.7 % (11.5-14.5)
[2023-05-08 13:48] LABS: ANION GAP 15 mmol/L (8-16); CALCIUM, TOTAL 9.2 mg/dL (8.8-10.5); CARBON DIOXIDE 19 mmol/L (22-29); CHLORIDE 102 mmol/L (98-107); CREATININE 1.43 mg/dL (0.60-1.30); GLOMERULAR FILTR. RATE CALC 50 mL/min (>60); GLUCOSE,RANDOM 104 mg/dL (70-110); SODIUM SERUM 136 mmol/L (136-145)
[2023-05-08 13:49] LABS: NEUTROPHILS % (AUTO) 88.6 % (40.0-70.0)
[2023-05-08 13:53] LABS: APPEARANCE,URINE CLEAR (CLEAR); BILIRUBIN,URINE NEGATIVE (NEGATIVE); GLUCOSE, URINE (UA) NEGATIVE (NEGATIVE); KETONES,URINE NEGATIVE (NEGATIVE); LEUKOCYTE ESTERASE ,URINE NEGATIVE (NEGATIVE); NITRATE,URINE NEGATIVE (NEGATIVE); OCCULT BLOOD,URINE NEGATIVE (NEGATIVE); PH,URINE 5.5 (5.0-8.0); PROTEIN,URINE 30-70 mg/dL (NEGATIVE); SPECIFIC GRAVITIY, URINE 1.024 (1.003-1.030); UROBILINOGEN,URINE <=1.0 mg/dL (<=1.0)
[2023-05-08 13:55] LABS: INR 1.1 (0.9-1.1); PROTHROMBIN TIME 11.4 SEC (9.4-11.6)
[2023-05-08 13:58] LABS: LACTIC ACID 5.2 mmol/L (0.4-2.0)
[2023-05-08 13:59] LABS: B-TYPE NATRIURETIC PEPTIDE 19 pg/mL (0-100)
[2023-05-08 14:14] LABS: ALANINE AMINOTRANSFERASE 25 U/L (12-78); ALBUMIN 3.6 g/dL (3.4-5.0); ALKALINE PHOSPHATASE 71 U/L (46-116); ASPARTATE AMINOTRANSFERASE 30 U/L (15-37); BILIRUBIN,TOTAL 0.7 mg/dL (0.1-1.0); CREATINE KINASE, TOTAL ONLY 979 U/L (39-308); TOTAL PROTEIN, SERUM 7.3 g/dL (6.4-8.2)
[2023-05-08] MEDS ORDERED: SODIUM CHLORIDE 0.9% 1,850 ML IV ONE (14:15)
[2023-05-08] MEDS ORDERED: PIPERACILLIN/TAZO 3.375 GM/D5W 50 ML IV ONE (14:15)
[2023-05-08] MEDS ORDERED: ACETAMINOPHEN 325 MG TABLET PO PRN ×2 (16:15→19:15)
[2023-05-08] MEDS ORDERED: ONDANSETRON HCL 4 MG/2 ML VIAL IVP PRN ×2 (16:15→19:15)
[2023-05-08 18:28] LABS: COVID AG,FIA SOURCE NASOPHARYNGEAL
[2023-05-08 18:49] LABS: INFLUENZA TYPE A NEGATIVE FOR TYPE A (NEGATIVE); INFLUENZA TYPE B NEGATIVE FOR TYPE B (NEGATIVE)
[2023-05-08 18:53] VITALS: BP 141/93; PULSE 111; RESP 18; TEMP 98.2
[2023-05-08] MEDS ORDERED: MORPHINE SULFATE 2 MG/ML SYRINGE IVP PRN (19:15)
[2023-05-08] MEDS ORDERED: MAGNESIUM HYDROXIDE SUSPENSION 30 ML UDCUP PO PRN (19:15)
[2023-05-08] MEDS ORDERED: ZOLPIDEM TARTRATE 5 MG TABLET PO PRN (19:15)
[2023-05-08] MEDS ORDERED: IPRATROPIUM BROMIDE 0.5 MG/2.5 ML NEB SOLUTION NEB PRN (19:15)
[2023-05-08] MEDS ORDERED: BISACODYL 10 MG RECTAL RECTAL SUPPOSITORY PR PRN (19:15)
[2023-05-08] MEDS ORDERED: ALBUTEROL SULFATE 2.5 MG/0.5 ML NEB SOLUTION NEB PRN (19:15)
[2023-05-08 20:15] VITALS: BP 142/97; PULSE 111; RESP 19; TEMP 98.7
[2023-05-08] MEDS: SODIUM CHLORIDE 0.9% 1,000 ML IV SCH (20:48)
[2023-05-08] MEDS: CefTRIAXone 1 GM/DEXTROSE 50 ML IV SCH (20:48)
[2023-05-08] MEDS: DOCUSATE SODIUM 100 MG CAPSULE PO SCH (21:13)
[2023-05-08] MEDS: AZITHROMYCIN 500 MG/NS 250 ML IV SCH (23:03)
[2023-05-09 00:23] VITALS: BP 134/97; PULSE 97; RESP 19; TEMP 97.4
[2023-05-09] MEDS: LORazepam 2 MG/ML VIAL IVP PRN ×2 (01:18→22:00)
[2023-05-09] MEDS: HEPARIN SODIUM,PORCINE 5,000 UNITS/ML VIAL SQ SCH ×3 (01:20→14:56)
[2023-05-09] MEDS ORDERED: DiphenhydrAMINE HCL 50 MG/ML VIAL IVP ONE (03:00)
[2023-05-09] MEDS ORDERED: LORazepam 2 MG/ML VIAL IVP ONE (03:00)
[2023-05-09] MEDS ORDERED: HALOPERIDOL LACTATE 5 MG/ML VIAL IVP ONE (03:00)
[2023-05-09 06:36] VITALS: BP 113/70; PULSE 87; RESP 17; TEMP 97.8
[2023-05-09 07:11] VITALS: BP 145/94; PULSE 100; RESP 19; TEMP 98
[2023-05-09 08:17] LABS: AMPHET/METH SCREEN,URINE POSITIVE (NEGATIVE); BARBITURATE SCREEN, URINE NEGATIVE (NEGATIVE); BENZODIAZEPINES SCREEN,URINE NEGATIVE (NEGATIVE); CANNABINOID SCREEN,URINE NEGATIVE (NEGATIVE); COCAINE SCREEN,URINE POSITIVE (NEGATIVE); METHADONE SCREEN, URINE NEGATIVE (NEGATIVE); OPIATE SCREEN,URINE NEGATIVE (NEGATIVE); PHENCYCLIDINE SCREEN,URINE NEGATIVE (NEGATIVE)
[2023-05-09] MEDS: PANTOPRAZOLE SODIUM 40 MG/VIAL IVP SCH (08:41)
[2023-05-09] MEDS: HYDROCODONE/ACETAMINOPHEN 5-325 MG TABLET PO PRN ×3 (08:41→16:54)
[2023-05-09] MEDS: DOCUSATE SODIUM 100 MG CAPSULE PO SCH ×2 (08:41→22:01)
[2023-05-09] MEDS: SODIUM CHLORIDE 0.9% 1,000 ML IV SCH (08:42)
[2023-05-09 12:18] VITALS: BP 129/70; PULSE 95; RESP 20; TEMP 97.8
[2023-05-09 15:11] LABS: BASOPHILS % (AUTO) 0.4 % (0.0-2.0); LYMPHOCYTES # (AUTO) 1.4 K/uL (1.0-4.8); LYMPHOCYTES % (AUTO) 16.2 % (22.0-44.0); MEAN CORPUSCULAR HEMOGLOBIN 29.8 pg (26.0-34.0); MEAN CORPUSCULAR HGB CONC 33.4 G/dL (31.0-37.0); MEAN CORPUSCULAR VOLUME 89 fL (80-100); MONOCYTES # (AUTO) 0.8 K/uL (0.1-1.0); MONOCYTES % (AUTO) 9.5 % (2.0-9.0); NEUTROPHILS # (AUTO) 5.9 K/uL (1.8-7.7); NEUTROPHILS % (AUTO) 67.9 % (40.0-70.0); PLATELET COUNT (AUTO) 221 K/uL (150-450); RED BLOOD CELL COUNT(AUTO) 4.37 MIL/uL (4.50-5.90); RED CELL DISTRIBUTION WIDTH 13.8 % (11.5-14.5)
[2023-05-09 15:23] LABS: ANION GAP 9 mmol/L (8-16); CARBON DIOXIDE 24 mmol/L (22-29); CHLORIDE 108 mmol/L (98-107); CREATININE 0.79 mg/dL (0.60-1.30); GLOMERULAR FILTR. RATE CALC > 60 mL/min (>60); GLUCOSE,RANDOM 120 mg/dL (70-110); POTASSIUM 3.6 mmol/L (3.5-5.1); SODIUM SERUM 141 mmol/L (136-145)
[2023-05-09 15:29] LABS: ALANINE AMINOTRANSFERASE 22 U/L (12-78); ALBUMIN 2.6 g/dL (3.4-5.0); ALKALINE PHOSPHATASE 58 U/L (46-116); ASPARTATE AMINOTRANSFERASE 38 U/L (15-37); BILIRUBIN,TOTAL 0.3 mg/dL (0.1-1.0); TOTAL PROTEIN, SERUM 5.8 g/dL (6.4-8.2)
[2023-05-09 16:12] VITALS: BP 111/61; PULSE 98; RESP 19; TEMP 97.5
[2023-05-09 20:59] VITALS: BP 149/96; PULSE 104; RESP 20; TEMP 97.9
[2023-05-09] MEDS ORDERED: QUEtiapine FUMARATE 100 MG TABLET PO SCH (21:00)
[2023-05-09] MEDS ORDERED: HALOPERIDOL LACTATE 5 MG/ML VIAL IM ONE (21:15)
[2023-05-09] MEDS: CefTRIAXone 1 GM/DEXTROSE 50 ML IV SCH (22:00)
[2023-05-09] MEDS: AZITHROMYCIN 500 MG/NS 250 ML IV SCH (22:00)
[2023-05-10 00:18] VITALS: BP 102/70; PULSE 93; RESP 20; TEMP 97.7
[2023-05-10] MEDS: SODIUM CHLORIDE 0.9% 1,000 ML IV SCH ×2 (01:10→13:05)
[2023-05-10] MEDS: HEPARIN SODIUM,PORCINE 5,000 UNITS/ML VIAL SQ SCH ×3 (01:10→17:14)
[2023-05-10 05:07] VITALS: BP 136/87; PULSE 124; RESP 20; TEMP 98.3
[2023-05-10 06:42] LABS: BASOPHILS % (AUTO) 0.5 % (0.0-2.0); EOSINOPHILS % (AUTO) 8.7 % (1.0-6.0); HEMATOCRIT 38.4 % (41-53); HEMOGLOBIN 12.9 g/dL (13.5-17.5); LYMPHOCYTES # (AUTO) 1.6 K/uL (1.0-4.8); MEAN CORPUSCULAR HEMOGLOBIN 30.3 pg (26.0-34.0); MEAN CORPUSCULAR HGB CONC 33.6 G/dL (31.0-37.0); MEAN CORPUSCULAR VOLUME 90 fL (80-100); MONOCYTES # (AUTO) 0.8 K/uL (0.1-1.0); MONOCYTES % (AUTO) 11.1 % (2.0-9.0); NEUTROPHILS # (AUTO) 4.4 K/uL (1.8-7.7); NEUTROPHILS % (AUTO) 58.7 % (40.0-70.0); PLATELET COUNT (AUTO) 215 K/uL (150-450); RED BLOOD CELL COUNT(AUTO) 4.25 MIL/uL (4.50-5.90); RED CELL DISTRIBUTION WIDTH 14.3 % (11.5-14.5)
[2023-05-10 07:11] LABS: ALANINE AMINOTRANSFERASE 18 U/L (12-78); ALBUMIN 2.5 g/dL (3.4-5.0); ALKALINE PHOSPHATASE 56 U/L (46-116); ANION GAP 5 mmol/L (8-16); ASPARTATE AMINOTRANSFERASE 32 U/L (15-37); BILIRUBIN,TOTAL 0.3 mg/dL (0.1-1.0); CALCIUM, TOTAL 8.3 mg/dL (8.8-10.5); CARBON DIOXIDE 25 mmol/L (22-29); CHLORIDE 109 mmol/L (98-107); CREATININE 0.75 mg/dL (0.60-1.30); GLOMERULAR FILTR. RATE CALC > 60 mL/min (>60); GLUCOSE,RANDOM 91 mg/dL (70-110); POTASSIUM 3.3 mmol/L (3.5-5.1); SODIUM SERUM 139 mmol/L (136-145); TOTAL PROTEIN, SERUM 5.9 g/dL (6.4-8.2)
[2023-05-10] MEDS: HYDROCODONE/ACETAMINOPHEN 5-325 MG TABLET PO PRN ×3 (08:33→17:14)
[2023-05-10] MEDS: PANTOPRAZOLE SODIUM 40 MG/VIAL IVP SCH (08:33)
[2023-05-10] MEDS: DOCUSATE SODIUM 100 MG CAPSULE PO SCH ×2 (08:34→20:00)
[2023-05-10] MEDS: QUEtiapine FUMARATE 300 MG TABLET PO SCH ×2 (08:34→20:00)
[2023-05-10 08:54] VITALS: BP 133/88; PULSE 111; RESP 20; TEMP 98.6
[2023-05-10] MEDS ORDERED: POTASSIUM CHLORIDE 20 MEQ ER TABLET PO ONE (10:30)
[2023-05-10] MEDS: CefTRIAXone 1 GM/DEXTROSE 50 ML IV SCH (20:00)
[2023-05-10] MEDS: AZITHROMYCIN 500 MG/NS 250 ML IV SCH (21:53)
[2023-05-11 00:25] VITALS: BP 119/80; PULSE 89; RESP 18; TEMP 98.6
[2023-05-11] MEDS: SODIUM CHLORIDE 0.9% 1,000 ML IV SCH (04:53)
[2023-05-11 05:05] VITALS: BP 143/94; PULSE 84; RESP 18; TEMP 98.4
[2023-05-11 07:05] LABS: BASOPHILS % (AUTO) 0.6 % (0.0-2.0); EOSINOPHILS % (AUTO) 5.2 % (1.0-6.0); HEMATOCRIT 40.8 % (41-53); HEMOGLOBIN 13.7 g/dL (13.5-17.5); LYMPHOCYTES # (AUTO) 1.1 K/uL (1.0-4.8); LYMPHOCYTES % (AUTO) 12.9 % (22.0-44.0); MEAN CORPUSCULAR HEMOGLOBIN 30.4 pg (26.0-34.0); MEAN CORPUSCULAR HGB CONC 33.5 G/dL (31.0-37.0); MEAN CORPUSCULAR VOLUME 91 fL (80-100); MONOCYTES # (AUTO) 0.7 K/uL (0.1-1.0); NEUTROPHILS % (AUTO) 73.3 % (40.0-70.0); PLATELET COUNT (AUTO) 228 K/uL (150-450); RED CELL DISTRIBUTION WIDTH 14.1 % (11.5-14.5)
[2023-05-11 07:17] LABS: ALANINE AMINOTRANSFERASE 20 U/L (12-78); ALBUMIN 2.7 g/dL (3.4-5.0); ALKALINE PHOSPHATASE 60 U/L (46-116); ANION GAP 8 mmol/L (8-16); ASPARTATE AMINOTRANSFERASE 30 U/L (15-37); BILIRUBIN,TOTAL 0.2 mg/dL (0.1-1.0); CALCIUM, TOTAL 8.7 mg/dL (8.8-10.5); CARBON DIOXIDE 24 mmol/L (22-29); CHLORIDE 108 mmol/L (98-107); CREATININE 0.83 mg/dL (0.60-1.30); GLOMERULAR FILTR. RATE CALC > 60 mL/min (>60); GLUCOSE,RANDOM 92 mg/dL (70-110); POTASSIUM 4.1 mmol/L (3.5-5.1); SODIUM SERUM 140 mmol/L (136-145); TOTAL PROTEIN, SERUM 6.4 g/dL (6.4-8.2)
[2023-05-11] MEDS: HEPARIN SODIUM,PORCINE 5,000 UNITS/ML VIAL SQ SCH ×4 (08:00→23:37)
[2023-05-11] MEDS: DOCUSATE SODIUM 100 MG CAPSULE PO SCH ×2 (09:00→21:47)
[2023-05-11 09:59] VITALS: BP 146/101; PULSE 106; RESP 18; TEMP 98.3
[2023-05-11] MEDS: PANTOPRAZOLE SODIUM 40 MG/VIAL IVP SCH (10:00)
[2023-05-11] MEDS: QUEtiapine FUMARATE 300 MG TABLET PO SCH ×2 (10:16→22:52)
[2023-05-11 16:44] VITALS: BP 140/90; PULSE 90; RESP 20; TEMP 98.2
[2023-05-11 16:53] VITALS: BP 118/83; PULSE 89; RESP 20; TEMP 98.2
[2023-05-11 20:16] VITALS: BP 120/81; PULSE 81; RESP 20; TEMP 98.3
[2023-05-11] MEDS: CefTRIAXone 1 GM/DEXTROSE 50 ML IV SCH (21:47)
[2023-05-11] MEDS: AZITHROMYCIN 500 MG/NS 250 ML IV SCH (22:22)
[2023-05-12] MEDS: SODIUM CHLORIDE 0.9% 1,000 ML IV SCH ×2 (03:13→09:03)
[2023-05-12 03:24] VITALS: BP 125/81; PULSE 78; RESP 17; TEMP 98
[2023-05-12 07:05] LABS: BASOPHILS % (AUTO) 0.8 % (0.0-2.0); EOSINOPHILS % (AUTO) 10.2 % (1.0-6.0); HEMATOCRIT 35.8 % (41-53); HEMOGLOBIN 12.1 g/dL (13.5-17.5); LYMPHOCYTES # (AUTO) 1.6 K/uL (1.0-4.8); MEAN CORPUSCULAR HEMOGLOBIN 30.4 pg (26.0-34.0); MEAN CORPUSCULAR HGB CONC 33.8 G/dL (31.0-37.0); MEAN CORPUSCULAR VOLUME 90 fL (80-100); MONOCYTES # (AUTO) 0.5 K/uL (0.1-1.0); MONOCYTES % (AUTO) 9.6 % (2.0-9.0); NEUTROPHILS # (AUTO) 2.8 K/uL (1.8-7.7); NEUTROPHILS % (AUTO) 50.4 % (40.0-70.0); PLATELET COUNT (AUTO) 218 K/uL (150-450); RED BLOOD CELL COUNT(AUTO) 3.98 MIL/uL (4.50-5.90); RED CELL DISTRIBUTION WIDTH 14.1 % (11.5-14.5)
[2023-05-12 07:22] LABS: ALANINE AMINOTRANSFERASE 15 U/L (12-78); ALBUMIN 2.4 g/dL (3.4-5.0); ALKALINE PHOSPHATASE 50 U/L (46-116); ANION GAP 8 mmol/L (8-16); ASPARTATE AMINOTRANSFERASE 22 U/L (15-37); BILIRUBIN,TOTAL 0.1 mg/dL (0.1-1.0); CALCIUM, TOTAL 8.3 mg/dL (8.8-10.5); CARBON DIOXIDE 25 mmol/L (22-29); CHLORIDE 109 mmol/L (98-107); CREATININE 0.72 mg/dL (0.60-1.30); GLOMERULAR FILTR. RATE CALC > 60 mL/min (>60); GLUCOSE,RANDOM 88 mg/dL (70-110); POTASSIUM 4.2 mmol/L (3.5-5.1); SODIUM SERUM 141 mmol/L (136-145); TOTAL PROTEIN, SERUM 5.8 g/dL (6.4-8.2)
[2023-05-12 08:00] VITALS: BP 127/94; PULSE 75; RESP 18; TEMP 98.5
[2023-05-12] MEDS: DOCUSATE SODIUM 100 MG CAPSULE PO SCH (08:40)
[2023-05-12] MEDS: QUEtiapine FUMARATE 300 MG TABLET PO SCH (08:40)
[2023-05-12] MEDS: PANTOPRAZOLE SODIUM 40 MG/VIAL IVP SCH (08:40)
[2023-05-12] MEDS: HEPARIN SODIUM,PORCINE 5,000 UNITS/ML VIAL SQ SCH (08:40)
[2023-05-12] MEDS ORDERED: QUET300T19 PO (12:42)
[2023-05-12] MEDS ORDERED: QUET100T34 PO (12:42)
== END 2023-05-12 14:00 | disposition home or self-care (01) | DRG 871 ==
LOC: EMS 13:03 → 5S 16:11 → 6S 05-11 14:50
PROVIDERS: ADMIT Hospitalist; ATTEND Hospitalist
DX: A41.9 Sepsis, unspecified organism (principal); J18.9 Pneumonia, unspecified organism; N17.9 Acute kidney failure, unspecified; M62.82 Rhabdomyolysis; F10.10 Alcohol abuse, uncomplicated; Z20.822 Contact with and (suspected) exposure to COVID-19; F17.210 Nicotine dependence, cigarettes, uncomplicated; F20.9 Schizophrenia, unspecified; F19.10 Other psychoactive substance abuse, uncomplicated; E87.6 Hypokalemia; Z88.8 Allergy status to other drugs, medicaments and biological substances; Z79.899 Other long term (current) drug therapy
CPT/HCPCS: 70450; 71045; 71046; 80053; 80307; 81003; 82550; 83605; 83880; 84443; 84484; 85025; 85610; 85730; 87040; 87804; 93005; 97116; 97163; 97166; 97535; 99291; C9113; G0378; J0456; J0696; J1200; J1630; J1644; J2060; J2543; J7030; 36415-L1; 36415-TC

== ENCOUNTER 2023-05-13 00:50 | Emergency (ER) | payer MEDICARE, MEDICAID ==
[~2023-05-13] VITALS: Ht 175.3 cm; Wt 85.0 kg
[~2023-05-13 00:50] MED LIST changes: +QUET300T19 PO
[2023-05-13 04:13] VITALS: BP 168/100; PULSE 120; RESP 20; TEMP 99.3
[2023-05-13] MEDS ORDERED: QUEtiapine FUMARATE 25 MG TABLET PO ONE (04:15)
== END 2023-05-13 04:31 | disposition home or self-care (01) ==
LOC: EMS 00:50
DX: F20.9 Schizophrenia, unspecified (principal); F10.20 Alcohol dependence, uncomplicated; F17.210 Nicotine dependence, cigarettes, uncomplicated; F15.90 Other stimulant use, unspecified, uncomplicated; Z88.8 Allergy status to other drugs, medicaments and biological substances
CPT/HCPCS: 99283